=== PATIENT | female | born 1935 | race Caucasian/White ===

== ENCOUNTER 2016-11-20 11:09 | Inpatient (IN) | payer OTHER ==
[~2016-11-20] VITALS: Ht 172.7 cm; Wt 87.3 kg
[2016-11-20] VITALS (32 sets, daily range): BP systolic 96–167; BP diastolic 49–134
--- NOTE | ~2016-11-20 | HC ---
[facility] [place] [address] CONSULTATION Name: REFUGIO KENNEDY Room #: 452-P ADM IN M.R.#: [id number] Admission: 11/20/16 Attend Phys: Elsie Almeida MD Discharge: Date of : 37 Report #: [id number] THIS REPORT FOR: //name// CC: Cyrus Espinosa REASON FOR CONSULTATION: Acute kidney injury. REASON FOR PRESENTATION: Presented from the nursing facility acting bizarre. HISTORY OF PRESENT ILLNESS: Unfortunately, the history is not obtainable from the patient as she is currently going through mental status issues. I reviewed the medical records and all of the notes from previous conditions. This is an 81-year-old with past medical history of coronary artery disease what seems to be a myocardial infarction back in 2003. She is also maintained on some medications for atrial fibrillation. She presented with mental status issue changes and was admitted for further evaluation and management. Sons are around. On presentation, she was thought to be septic. She had an acute kidney injury. There was a report of fever, but she did not spike any temperature. She was also hypotensive. She had thrombocytopenia and was described by Dr. Garcia, the spinning operator seeing her as DIC related to sepsis. Creatinine on presentation has been on the high side. She was also on the hypotensive side. She continues to make urine. Sodium is slightly up this morning and her creatinine is on the trend down. I was consulted to manage her fluid, electrolytes, acid base, acute kidney injury. PAST MEDICAL HISTORY: 1. Hypertension. 2. Atrial fibrillation. 3. Coronary artery disease. 4. Heart attack in 2003. PAST SURGICAL HISTORY: Unobtainable given the patient's medical conditions including mental status issues. MEDICATIONS: The patient was maintained on losartan, hydrochlorothiazide, Plavix, amlodipine, metoprolol. FAMILY HISTORY: Unobtainable given the patient's mental status. REVIEW OF SYSTEMS: Unobtainable given the patient's mental status; however, the family reported that she has been acting weird, bizarre. She did have decreased p.o. intake. No reported chest pain or shortness of breath. No reported nausea or hematemesis. No cough. No nausea or vomiting. No change in urinary habits. No loss of consciousness. ALLERGIES: Reviewed. [address] [address] CONSULTATION Name: REFUGIO KENNEDY Room #: 452-P [facility] IN ..#: [id number] Admission: 11/20/16 Attend Phys: Elsie Almeida MD Discharge: Date of : 37 Report #: [id number] PHYSICAL EXAMINATION: GENERAL: She is oriented to place, time, person. VITAL SIGNS: Blood pressure 120/60. HEAD AND NECK: Very dry mucous membrane. CHEST: Decreased air entry bilaterally. CARDIOVASCULAR: Regular, with a soft systolic murmur, no rub detected. ABDOMEN: Soft, nontender with no hepatosplenomegaly. LOWER EXTREMITIES: +1 edema. LABORATORY VALUES: Reviewed. Sodium is 150. Creatinine is . Platelet is extremely low running in the low 20 range. Chest x-ray reviewed. No acute abnormalities. CT abdomen and pelvis was also reviewed. ASSESSMENT, IMPRESSION, PLAN: 1. Acute kidney injury. 2. Hypernatremia. 3. Hypokalemia. 4. Thrombocytopenia with possible disseminated intravascular coagulation. 5. Reported fever in the nursing facility. 6. Altered mental status. 7. Continue with the current medical management including antibiotic. 8. Switched to D5W. 9. I am concerned about the history of fever, acute kidney injury, thrombocytopenia and this might raise the possibility of thrombotic thrombocytopenic purpura versus hemolytic uremic syndrome. We will start the investigation into that direction; however, the fact that her peripheral smear does not have any diagnosis. 10. We will discuss with Dr. Garcia and Dr. Almeida. 11. She seems to be trending down with her creatinine with an improvement in her acute kidney injury, which suggest that she might have had a prerenal azotemia given the current clinical condition while on hydrochlorothiazide, losartan. 12. We will continue to follow along. <ELECTRONICALLY SIGNED> By: Brooke Resendiz MD 11/23/16 1640 0948 1647 Brooke Resendiz MD /nt
--- NOTE | ~2016-11-20 | 2DMMODE ---
[facility] [address] [place] [address] 2 D/M-MODE ECHOCARDIOGRAM Name: REFUGIO KENNEDY Room #: 242-P [facility] IN ..#: [id number] Admission: 11/20/16 Attend Phys: Cyrus Moon, Discharge: Date of : 37 Date of Service: 11/21/16 1333 Report #: [id number] THIS REPORT FOR: //name// APPROVED REPORT Study performed: 11/21/2016 08:35:13 EXAM: Comprehensive 2D, Doppler, and color-flow Echocardiogram Patient Location: Bedside Room #: 242 Blood Pressure: 133/83 mmHg HR: 105 bpm Rhythm: Atrial Fibrillation Other Information Study Quality: Good Indications Atrial Fibrillation CAD Hx: [place], Atach with ablation, Stents, HTN, HLP 2D Dimensions RVDd: 37.13 mm LVEF(%): 45.28 (>50%) IVSd: 11.29 (7-11mm) LVOT Diam: 19.60 (18-24mm) LVDd: 41.59 mm PWd: 11.32 (7-11mm) LVDs: 32.34 (25-40mm) Aortic Root: 35.21 mm Chan's LVEF: 45.28 % Volumes Left Atrial Volume (Systole) Single Plane 4CH: 82.53 mL Single Plane 2CH: 100.50 mL LA ESV Index: 51.00 mL/m2 Aortic Valve AoV Peak Meño.: 1.93 m/s AO Peak Gr.: 15.27 mmHg LVOT Max P.48 mmHg LVOT Max V: 1.17 m/s Mitral Valve [facility] [address] [address] 2 D/M-MODE ECHOCARDIOGRAM Name: REFUGIO KENNEDY Room #: 242-P ADM IN ..#: [id number] Admission: 11/20/16 Attend Phys: Cyrus Moon, Discharge: Date of : 37 Date of Service: 11/21/16 1333 Report #: [id number] MV Decel. Time: 153.57 ms MV E Max Meño.: 1.12 m/s Pulmonary Valve PV Peak Meño.: 1.12 m/s PV Peak Gr.: 5.14 mmHg Tricuspid Valve TR Peak Meño.: 3.46 m/s RAP Estimate: 10.00 mmHg TR Peak Gr.: 48.12 mmHg RVSP: 58.00 mmHg Left Ventricle The left ventricle is normal size. There is normal LV segmental wall motion. Mild concentric left ventricular hypertrophy. Left ventricular systolic function is normal. LVEF is 55-60%. This study is not technically sufficient to allow evaluation of the LV diastolic function due to atrial fibrillation. Right Ventricle The right ventricle is normal size. The right ventricular systolic function is normal. Atria Left atrium is severely dilated. Right atrium is moderately dilated. Aortic Valve Aortic valve is thickened and calcified. Mild aortic regurgitation. There is no aortic valvular stenosis. Mitral Valve Mitral valve leaflets are mildly thickened. Mild mitral annular calcification. Mild mitral regurgitation. Tricuspid Valve The tricuspid valve is normal in structure. There is moderate tricuspid regurgitation. The right atrial pressure is estimated at 10 mmHg. There is moderate pulmonary hypertension. Estimated PAP is 58mmHg. Pulmonic Valve Pulmonic valve is not well visualized. Mild pulmonic regurgitation. Great Vessels The aortic root is normal in size. Ascending aorta is not well visualized. The inferior vena cava is not well visualized but appears [facility] [address] [place] [address] 2 D/M-MODE ECHOCARDIOGRAM Name: REFUGIO KENNEDY Room #: 242-P ADM IN .R.#: [id number] Admission: 11/20/16 Attend Phys: Cyrus Moon, Discharge: Date of : 37 Date of Service: 11/21/16 1333 Report #: [id number] dilated with decrease in respiratory variation. Pericardium There is no pericardial effusion. <Conclusion> The left ventricle is normal size. Mild concentric left ventricular hypertrophy. Left ventricular systolic function is normal. Left atrium is severely dilated. Right atrium is moderately dilated. Aortic valve is thickened and calcified. Mild aortic regurgitation. Mitral valve leaflets are mildly thickened. Mild mitral annular calcification. Mild mitral regurgitation. There is moderate tricuspid regurgitation. The right atrial pressure is estimated at 10 mmHg. There is moderate pulmonary hypertension. Estimated PAP is 58mmHg. <ELECTRONICALLY SIGNED> By: Ozzie De Paz MD 11/21/16 1333 133 133 Ozzie De Paz MD /INF
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
--- NOTE | ~2016-11-20 | EKG ---
[place] [address] [employer] [facility] [place] [address] ELECTROCARDIOGRAM REPORT Name: REFUGIO KENNEDY Room #: 242-P ADM IN M.R.#: [id number] Admission: 11/20/16 Attend Phys: Cyrus Moon MD Discharge: Date of : 36 Report #: [id number] THIS REPORT FOR: //name// 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1935 Requested By: Bertha Franks Order Number: [id number] MD: Diego Baca Measurements Intervals [place] Rate: 123 P: [place]: QRS: 50 QRSD: 92 T: 246 QT: 290 QTc: 415 Interpretive Statements Atrial fibrillation Repol abnrm, diffuse leads Compared to ECG 08/10/2015 07:37:35 atrial fibrillation is now present ST segment abnormality is more prominent Electronically Signed On 11-21-2016 8:16:22 CDT by Diego Baca [email or web address] <ELECTRONICALLY SIGNED> By: Diego Baca MD, [facility] 11/21/16 0816 1125 1125 Diego Baca MD, [facility] /EPI
--- NOTE | ~2016-11-20 | S ---
[facility] [place] [address] SURGICAL PATH RPT PROCEDURE Name: REFUGIO KENNEDY Room #: 242-P ADM IN M.R.#: [id number] Admission: 11/20/16 Date of : 37 Discharge: Report #: [id number] Path Case #: [id number] PATHOLOGY REPORT COLLECTION DATE: 11/21/2016 RECEIVED DATE: 11/21/2016 SUBMITTING PHYS: Dr. Kim Garcia OTHER PHYS: Dr. Bertha Belcher SPECIMEN(S) RECEIVED: A.Peripheral smear * * * * * * * * * * * * FINAL DIAGNOSIS: Peripheral blood smear: - Very mild normocytic anemia, mild leukocytosis / neutrophilia and severe thrombocytopenia. (See comment) COMMENT: Overall the peripheral blood has very mild normocytic anemia, mild leukocytosis / neutrophilia and severe thrombocytopenia. The etiology of the findings is unclear based entirely on slide review. The very mild normocytic anemia is likely dilutional. The mild leukocytosis / neutrophilia is likely a reactive condition. Potential causes of significant thrombocytopenia include immune and non-immune platelet destruction, drug and/or toxic exposures, acute blood loss, dilutional and primary bone marrow disorders. Thrombotic thrombocytopenic purpura is considered less likely. Correlation with clinical history and additional laboratory data is recommended. The case is discussed with Dr. Kim Garcia on 11/21/2016, at approximately 3:00 p.m. (CLW:parker; d/t: 11/21/2016) PATHOLOGIST: Maryana Bucio M.D. REPORT ELECTRONICALLY SIGNED BY: Maryana Bucio M.D. DATE/TIME: 11/21/2016 21:42 * * * * * * * * * * * * MICROSCOPIC DESCRIPTION: CBC DATA (11/21/26)): WBC: 13, 900/uL; RBC: 4.08; Hgb: 11.9 g/dL; Hct: 35.9%; MCV: 87.8 fL; MCH: 29.3 pg; MCHC: 33.3 g/dL; RDW: 13.6%; platelets: 31,000 /uL. Automated white blood cell differential: segs 85.1%, lymphs 6.2%, monos 7.6%, eos 0.6%, baso 0.5%. [address] [address] SURGICAL PATH RPT PROCEDURE Name: REFUGIO KENNEDY Room #: 242-P ADM IN M.R.#: [id number] Admission: 11/20/16 Date of : 37 Discharge: Report #: [id number] Path Case #: [id number] Peripheral blood smear: Cytomorphological examination of the Lares's-stained peripheral blood smear confirms the provided data. Red blood cells show very mild normocytic anemia with minimal to mild anisopoikilocytosis. Rare dacryocytes (pointed RBCs), teardrop cells, acanthocytes and crenated cells are noted. A rare schistocyte is seen on scanning. White blood cells are mildly increased in number. They are predominantly segmented neutrophils and are without significant dyspoiesis or significant left shift. Lymphocytes are predominantly small, round and mature-appearing with condensed chromatin and scant cytoplasm with admixed large granular lymphocytes. Monocytes are mature. Platelets are markedly decreased in number and mainly normal in morphology with rare larger platelets noted. GROSS PATHOLOGY: A peripheral smear is submitted. CLINICAL HISTORY: 81-year-old woman with severe thrombocytopenia. Morphologic review of the peripheral blood smear is requested by the patient's physician. INITIAL CPT CODE(S): A; [place] Professional services performed by [employer] at [facility] [address], [place] [address] Technical services performed by [employer] at [address] [place] [address], [address], [place] [address]. [facility] [address] [place] [address] PHONE: [phone] DIRECTOR: Raj Giraldo M.D. * * * END OF REPORT * * *
--- NOTE | ~2016-11-20 | EKG ---
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1935 Requested By: Cristian Murphy Order Number: [id number] MD: Diego Baca Measurements Intervals [place] Rate: 97 P: [place]: QRS: 65 QRSD: 84 T: 253 QT: 302 QTc: 384 Interpretive Statements Atrial fibrillation Repol abnrm suggests ischemia, diffuse leads Compared to ECG 08/10/2015 07:37:35 no significant change was found Electronically Signed On 11-21-2016 8:38:06 CDT by Diego Baca [email or web address] <ELECTRONICALLY SIGNED> By: Diego Baca MD, [facility] 11/21/16 0838 0649 Diego Baca MD, [facility] /EPI
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
[~2016-11-20 11:09] MED LIST: ACETAMINOPHEN325 M1 PO; ASPIRIN325; BAYER CHEWABLE81 MG PO; CALCIUM 1,0001 EACH PO; CLOPIDOGREL75 MG PO; DARVOCET-N 1001 EACH PO; DIOVAN HCT 3201 EAC1 PO; FISH OIL 1,001000 M1 PO; GLUCOPHAGE XR500 MG PO; I-CAPS WITH LU1 EACH PO; LOPRESSOR100 MG PO; LOSARTAN-HCTZ1 EAC1 PO; NITROGLYCERIN0.4 MG SL; NORVASC 5 MG TAB5 MG PO; NORVASC5 MG PO; OXYCODONE HCL5 M1 PO; TERBINAFINE; TOPROL XL100 MG PO; TOPROL XL50 MG PO; TYLENOL325 MG PO; ULTRAM 50MG TAB50 MG PO; ZOCOR40 MG PO
[2016-11-20 12:46] LABS: MCHC 33.4 g/dL (28.0-37.0); WBC 17.5 thou/uL (4.0-11.0)
[2016-11-20 12:48] LABS: ABSOLUTE NEUTROPHILS 15.3 thou/uL (1.4-8.2); BASOPHILS 0.5 % (0.0-2.0); EOSINOPHILS 0.1 % (0.0-3.0); HEMOGLOBIN 14.1 gm/dL (12.0-15.0); LYMPHOCYTES 4.8 % (24.0-44.0); MCH 29.2 pg (26.0-34.0); MCV 87.4 fL (80.0-100.0); MONOCYTES 6.9 % (1.0-8.0); POLYS 87.7 % (36.0-66.0); RBC 4.81 mil/uL (4.20-5.00); RDW 13.2 % (10.5-14.5)
[2016-11-20 12:51] LABS: MANUAL DIFF NO
[2016-11-20 12:53] LABS: CALCIUM 10.1 mg/dL (8.5-10.1); POTASSIUM 3.3 mmol/L (3.5-5.1)
[2016-11-20 13:15] LABS: URINE BILIRUBIN 1+ (Negative); URINE BLOOD 1+ (Negative); URINE COLOR YELLOW; URINE GLUCOSE-RANDOM* NEGATIVE (Negative); URINE KETONES NEGATIVE (Negative); URINE NITRITE NEGATIVE (Negative); URINE PROTEIN (DIPSTICK) 1+ (Negative); URINE SPECIFIC GRAVITY 1.025 (1.003-1.035); URINE UROBILINOGEN 0.2 E.U./dl (0.2-1.0)
[2016-11-20 13:18] LABS: ICTOTEST (BILI CONFIRMATORY) Negative (Negative)
[2016-11-20] MEDS ORDERED: QUETIAPINE FUMA50 M1 PO (13:29)
[2016-11-20 13:35] LABS: HYALINE CASTS 4-10 Moderate /LPF (None Seen); SQUAMOUS 0-3 Few /LPF (0-3)
[2016-11-20 13:36] LABS: AMORPHOUS URATES Few /LPF (None Seen); BACTERIA 1-9 Few /HPF (None Seen); URINE RBC 0-2 Rare /HPF (0-2); URINE WBC 0-5 Rare /HPF (0-5)
[2016-11-20 13:39] LABS: PLATELET ESTIMATE MARKEDLY DECREASED
[2016-11-20 13:43] LABS: PLATELET COUNT 13 thou/uL (150-400)
[2016-11-20 16:40] LABS: CALCIUM 8.8 mg/dL (8.5-10.1); CREATININE 2.5 mg/dL (0.6-1.0); POTASSIUM 3.8 mmol/L (3.5-5.1)
[2016-11-20 16:46] LABS: HEMOGLOBIN 12.8 gm/dL (12.0-15.0); MCH 29.2 pg (26.0-34.0); MCHC 32.9 g/dL (28.0-37.0); MCV 88.8 fL (80.0-100.0); RBC 4.39 mil/uL (4.20-5.00); RDW 13.5 % (10.5-14.5); WBC 15.8 thou/uL (4.0-11.0)
[2016-11-20 17:28] LABS: ABG SAMPLE TYPE ARTERIAL; BE(vivo) -4.2 mmol/L (-2 to +3); HCO3 19.8 mmol/L (22.0-26.0); LACTATE 1.69 mmol/L (0.5-2.0); O2(CT) 17.2 mL/dL (15.0-23.0); O2Hb 97.3 % (92.0-98.0); PO2 148.4 mmHg (80.0-100.0); pH 7.397 (7.360-7.450); sO2 98.9 % (92.0-98.0); tCO2 20.9 mmol/L (24.0-30.0)
[2016-11-20 17:29] LABS: STICK SITE R.RADIAL
[2016-11-20 18:02] LABS: AMYLASE 70 U/L (25-115)
[2016-11-20 18:17] LABS: APTT 29.1 Seconds (24.5-32.8); FIBRINOGEN 162.1 mg/dL (210-360); INR 1.3; PROTIME 13.7 Seconds (9.3-11.4)
[2016-11-20 22:51] LABS: ABSOLUTE RETIC COUNT 0.0328 10^6/uL; OBSERVED RETIC COUNT 0.74 % (0.6-2.6)
[2016-11-20 22:54] LABS: HEMATOCRIT 39.7 % (37.0-47.0); HEMOGLOBIN 13.1 gm/dL (12.0-15.0); MCH 29.2 pg (26.0-34.0); MCV 88.3 fL (80.0-100.0); RBC 4.5 mil/uL (4.20-5.00); RDW 13.7 % (10.5-14.5); WBC 15.1 thou/uL (4.0-11.0)
[2016-11-20 22:59] LABS: DIRECT BILIRUBIN 0.3 mg/dL (<0.1-0.3); TOTAL BILIRUBIN 1.9 mg/dL (<0.1-1.0); TOTAL PROTEIN 6.5 g/dL (6.4-8.2)
[2016-11-21] VITALS (48 sets, daily range): BP systolic 80–154; BP diastolic 50–129
[2016-11-21 05:57] LABS: HEMATOCRIT 35.2 % (37.0-47.0); HEMOGLOBIN 11.9 gm/dL (12.0-15.0); MCHC 33.8 g/dL (28.0-37.0)
[2016-11-21 05:59] LABS: MCH 29.4 pg (26.0-34.0); MCV 87.1 fL (80.0-100.0); RBC 4.04 mil/uL (4.20-5.00); RDW 13.3 % (10.5-14.5); WBC 13.9 thou/uL (4.0-11.0)
[2016-11-21 06:15] LABS: CALCIUM 9.2 mg/dL (8.5-10.1); CREATININE 2.1 mg/dL (0.6-1.0)
[2016-11-21 07:26] LABS: CREATININE 2.1 mg/dL (0.6-1.0); MAGNESIUM 1.8 mg/dL (1.8-2.4)
[2016-11-21 11:18] LABS: URINE BILIRUBIN NEGATIVE (Negative); URINE BLOOD 3+ (Negative); URINE COLOR YELLOW; URINE GLUCOSE-RANDOM* NEGATIVE (Negative); URINE KETONES NEGATIVE (Negative); URINE NITRITE NEGATIVE (Negative); URINE PROTEIN (DIPSTICK) NEGATIVE (Negative); URINE SPECIFIC GRAVITY 1.015 (1.003-1.035); URINE UROBILINOGEN 0.2 E.U./dl (0.2-1.0)
[2016-11-21 11:48] LABS: BACTERIA 1-9 Few /HPF (None Seen); CASTS None Seen /LPF (None Seen); CRYSTALS None Seen /LPF (None Seen); SQUAMOUS 0-3 Few /LPF (0-3); URINE WBC 0-5 Rare /HPF (0-5)
[2016-11-21 12:22] LABS: ESR (SEDRATE) 6 mm/hr (0-30)
[2016-11-21 17:10] LABS: URINE CREATININE-RANDOM* 35.5 mg/dL (Not Estab.); URINE PROTEIN-RANDOM* 17.4 mg/dL (Not Estab.)
[2016-11-21 23:13] LABS: FOLIC ACID 13.3 ng/mL (8.6-58.9); TSH 0.087 uIU/mL (0.358-3.740)
[2016-11-22] VITALS (34 sets, daily range): BP systolic 97–151; BP diastolic 43–101
[2016-11-22 02:09] LABS: GLYCOHEMOGLOBIN (HGB A1C) 5.4 % (4.8-5.6)
[2016-11-22 04:05] LABS: APTT 29.3 Seconds (24.5-32.8); FIBRINOGEN 145.1 mg/dL (210-360); INR 1.3; PROTIME 13.6 Seconds (9.3-11.4)
[2016-11-22 04:15] LABS: ALBUMIN 2.6 g/dL (3.4-5.0); CALCIUM 8.6 mg/dL (8.5-10.1); CREATININE 1.9 mg/dL (0.6-1.0); POTASSIUM 3.1 mmol/L (3.5-5.1)
[2016-11-22 04:22] LABS: WBC 10.6 thou/uL (4.0-11.0)
[2016-11-22 04:25] LABS: HEMATOCRIT 30.1 % (37.0-47.0); HEMOGLOBIN 10.6 gm/dL (12.0-15.0); MCH 30.5 pg (26.0-34.0); MCHC 35.3 g/dL (28.0-37.0); MCV 86.3 fL (80.0-100.0); RBC 3.49 mil/uL (4.20-5.00); RDW 13.5 % (10.5-14.5)
[2016-11-22 07:14] LABS: FREE T4 1.73 ng/dL (0.82-1.77)
[2016-11-22 18:53] LABS: MAGNESIUM 1.3 mg/dL (1.8-2.4); POTASSIUM 3.8 mmol/L (3.5-5.1)
[2016-11-23] VITALS (8 sets, daily range): BP systolic 115–141; BP diastolic 48–70
[2016-11-23 01:08] LABS: ALBUMIN 2.4 g/dL (3.4-5.0); CALCIUM 8.8 mg/dL (8.5-10.1); CREATININE 1.6 mg/dL (0.6-1.0); MAGNESIUM 2.2 mg/dL (1.8-2.4); PHOSPHORUS 2.3 mg/dL (2.5-4.9); POTASSIUM 3.8 mmol/L (3.5-5.1)
[2016-11-23 06:17] LABS: HEMATOCRIT 29.6 % (37.0-47.0); MCH 29.7 pg (26.0-34.0); MCHC 33.9 g/dL (28.0-37.0); MCV 87.5 fL (80.0-100.0); RBC 3.38 mil/uL (4.20-5.00); RDW 13.4 % (10.5-14.5); WBC 10.2 thou/uL (4.0-11.0)
[2016-11-23 18:06] LABS: HISTOPLASMA MYCELIAL-ID Negative (Negative)
[2016-11-24 03:14] VITALS: BP 121/63
[2016-11-24 06:04] LABS: HEMATOCRIT 29.3 % (37.0-47.0); HEMOGLOBIN 9.8 gm/dL (12.0-15.0); MCH 29.2 pg (26.0-34.0); MCHC 33.4 g/dL (28.0-37.0); MCV 87.6 fL (80.0-100.0); RBC 3.34 mil/uL (4.20-5.00); RDW 13.5 % (10.5-14.5); WBC 11.9 thou/uL (4.0-11.0)
[2016-11-24 06:20] LABS: ALBUMIN 2.4 g/dL (3.4-5.0); CALCIUM 8.7 mg/dL (8.5-10.1); CREATININE 1.5 mg/dL (0.6-1.0); PHOSPHORUS 2.5 mg/dL (2.5-4.9); POTASSIUM 4.2 mmol/L (3.5-5.1)
[2016-11-24 07:49] VITALS: BP 138/72
[2016-11-24 11:20] VITALS: BP 135/69
[2016-11-24 13:06] LABS: BETA-2 GLYCOPROTEIN IGG < 9 (0-20); BETA-2 GLYCOPROTEIN IGM < 9 (0-32)
[2016-11-24 15:50] VITALS: BP 141/79
[2016-11-24 18:41] VITALS: BP 151/82
[2016-11-24 23:39] VITALS: BP 147/81
[2016-11-25 04:32] VITALS: BP 135/78
[2016-11-25 05:10] LABS: ALPHA TOCOPHEROL 8.7 mg/L (6.5-21.5)
[2016-11-25 05:19] LABS: HEMATOCRIT 28.1 % (37.0-47.0); HEMOGLOBIN 9.6 gm/dL (12.0-15.0); MCH 29.8 pg (26.0-34.0); MCHC 34.3 g/dL (28.0-37.0); RBC 3.23 mil/uL (4.20-5.00); RDW 13.9 % (10.5-14.5); WBC 10.5 thou/uL (4.0-11.0)
[2016-11-25 05:47] LABS: ALBUMIN 2.5 g/dL (3.4-5.0); CALCIUM 8.7 mg/dL (8.5-10.1); CREATININE 1.3 mg/dL (0.6-1.0); PHOSPHORUS 2.5 mg/dL (2.5-4.9); POTASSIUM 4.2 mmol/L (3.5-5.1)
[2016-11-25 07:20] VITALS: BP 155/89
[2016-11-25 11:28] LABS: NIL (NEGATIVE) CONTROL SPOT CT 0; PANEL A SPOT CT 1; PANEL B SPOT CT 0; POSITIVE CONTROL SPOT COUNT > 20; T-SPOT.TB Negative
[2016-11-25 11:57] VITALS: BP 136/72
[2016-11-25 15:07] VITALS: BP 146/78
[2016-11-25 19:12] LABS: DIL. RUSSELL VIPER VENOM 64.1 sec (0.0-44.0)
[2016-11-25 19:15] VITALS: BP 154/86
[2016-11-25 21:08] LABS: INFLUENZA B Negative (Negative); METAPNEUMOVIRUS Negative (Negative)
[2016-11-26 04:00] VITALS: BP 110/55
[2016-11-26 04:39] LABS: HEMATOCRIT 27.1 % (37.0-47.0); HEMOGLOBIN 9.1 gm/dL (12.0-15.0); MCH 29.7 pg (26.0-34.0); MCHC 33.7 g/dL (28.0-37.0); PLATELET COUNT 127 thou/uL (150-400); RBC 3.08 mil/uL (4.20-5.00); WBC 10.7 thou/uL (4.0-11.0)
[2016-11-26 04:47] LABS: CALCIUM 8.8 mg/dL (8.5-10.1); CREATININE 1.3 mg/dL (0.6-1.0); POTASSIUM 4.2 mmol/L (3.5-5.1)
[2016-11-26 04:54] LABS: MANUAL DIFF YES
[2016-11-26 06:57] VITALS: BP 125/86
[2016-11-26 09:04] LABS: ABSOLUTE NEUTROPHILS 7.9 thou/uL (1.4-8.2); METAMYELOCYTES 2 %; TOTAL CELL COUNT 100
[2016-11-26 09:05] LABS: ANISOCYTOSIS SLIGHT; POLYCHROMASIA OCCASIONAL
[2016-11-26 11:46] VITALS: BP 136/72
[2016-11-26] MEDS ORDERED: CEFUROXIME500 MG PO (12:39)
[2016-11-26] MEDS ORDERED: LOPRESSOR50 PO (12:40)
[2016-11-26] MEDS ORDERED: DIGOXIN125 MCG PO (12:40)
[2016-11-26] MEDS ORDERED: CARDIZEM CD 18180 M3 PO (12:40)
[2016-11-26 22:06] LABS: HISTOPLASMA MYCELIAL-CF Negative (Neg:<1:2); HISTOPLASMA YEAST BY CF Negative (Neg:<1:2)
== END 2016-11-26 16:05 | DRG 871 ==
LOC: ER 11:09 → EROBS 13:35 → ICU 13:35 → EROBS 14:49 → ICU 14:49 → 4W 11-22 16:15
PROVIDERS: Emergency Medicine; Family Medicine; Hospitalist; Internal Medicine; Internal Medicine Hematology & Oncology; Nurse Practitioner Adult Health; Psychiatry & Neurology Neurology; Specialist
PROC: 02HV33Z Insertion of Infusion Device into Superior Vena Cava, Percutaneous Approach (ICD-10-PCS; principal; 2016-11-21)
DX: A41.9 Sepsis, unspecified organism (principal); J18.9 Pneumonia, unspecified organism; D65 Disseminated intravascular coagulation [defibrination syndrome]; G92 Toxic encephalopathy; N17.9 Acute kidney failure, unspecified; E87.0 Hyperosmolality and hypernatremia; E78.5 Hyperlipidemia, unspecified; I48.0 Paroxysmal atrial fibrillation; I25.10 Atherosclerotic heart disease of native coronary artery without angina pectoris; E78.00 Pure hypercholesterolemia, unspecified; F03.90 Unspecified dementia, unspecified severity, without behavioral disturbance, psychotic disturbance, mood disturbance, and anxiety; E87.6 Hypokalemia; I08.3 Combined rheumatic disorders of mitral, aortic and tricuspid valves; D64.9 Anemia, unspecified; D32.9 Benign neoplasm of meninges, unspecified; E83.39 Other disorders of phosphorus metabolism; N18.9 Chronic kidney disease, unspecified; I12.9 Hypertensive chronic kidney disease with stage 1 through stage 4 chronic kidney disease, or unspecified chronic kidney disease; R91.8 Other nonspecific abnormal finding of lung field; I27.2 Other secondary pulmonary hypertension; Z86.73 Personal history of transient ischemic attack (TIA), and cerebral infarction without residual deficits; Z87.81 Personal history of (healed) traumatic fracture; Z95.5 Presence of coronary angioplasty implant and graft; I25.2 Old myocardial infarction; Z87.891 Personal history of nicotine dependence; Z88.0 Allergy status to penicillin; Z88.1 Allergy status to other antibiotic agents
CPT/HCPCS: 10047; 10078; 27000

== ENCOUNTER → 2016-12-16 | Outpatient (CLI) | payer OTHER ==
[~2016-12-16] MED LIST changes: +CARDIZEM CD 18180 M3 PO; +CEFUROXIME500 MG PO; +DIGOXIN125 MCG PO; +LOPRESSOR50 PO; +QUETIAPINE FUMA50 M1 PO
== END ==
LOC: HYPER 10:10
DX: S80.822A Blister (nonthermal), left lower leg, initial encounter (principal); S90.822A Blister (nonthermal), left foot, initial encounter; I25.2 Old myocardial infarction; D69.49 Other primary thrombocytopenia; N99.0 Postprocedural (acute) (chronic) kidney failure; R60.0 Localized edema; I10 Essential (primary) hypertension; I48.91 Unspecified atrial fibrillation; I25.10 Atherosclerotic heart disease of native coronary artery without angina pectoris; E78.5 Hyperlipidemia, unspecified; E78.00 Pure hypercholesterolemia, unspecified; I73.9 Peripheral vascular disease, unspecified; G30.9 Alzheimer's disease, unspecified; F02.80 Dementia in other diseases classified elsewhere, unspecified severity, without behavioral disturbance, psychotic disturbance, mood disturbance, and anxiety; Z86.73 Personal history of transient ischemic attack (TIA), and cerebral infarction without residual deficits; Z87.01 Personal history of pneumonia (recurrent); Z87.891 Personal history of nicotine dependence; X58.XXXA Exposure to other specified factors, initial encounter; Y93.89 Activity, other specified; Y92.89 Other specified places as the place of occurrence of the external cause; Y99.8 Other external cause status

== ENCOUNTER → 2017-01-01 | Outpatient (CLI) | payer OTHER | LOC: HYPER 12-30 07:08 | DX: S81.802A Unspecified open wound, left lower leg, initial encounter (principal); S81.801A Unspecified open wound, right lower leg, initial encounter; G30.9 Alzheimer's disease, unspecified; I25.2 Old myocardial infarction; F03.90 Unspecified dementia, unspecified severity, without behavioral disturbance, psychotic disturbance, mood disturbance, and anxiety; D69.49 Other primary thrombocytopenia; N99.0 Postprocedural (acute) (chronic) kidney failure; I10 Essential (primary) hypertension; I25.10 Atherosclerotic heart disease of native coronary artery without angina pectoris; E78.5 Hyperlipidemia, unspecified; E78.00 Pure hypercholesterolemia, unspecified; Z86.73 Personal history of transient ischemic attack (TIA), and cerebral infarction without residual deficits; I73.9 Peripheral vascular disease, unspecified; Z87.891 Personal history of nicotine dependence; X58.XXXA Exposure to other specified factors, initial encounter; Y93.89 Activity, other specified; Y92.89 Other specified places as the place of occurrence of the external cause; Y99.8 Other external cause status ==